=== PATIENT | female | born 1940 | race Caucasian/White ===

== ENCOUNTER 2019-03-11 14:05 | Outpatient (CLI) | payer MEDICARE | END 2019-03-11 23:59 | disposition home or self-care (01) | LOC: CVU 14:05 | PROVIDERS: ATTEND Internal Medicine Cardiovascular Disease | DX: I08.8 Other rheumatic multiple valve diseases (principal); I65.23 Occlusion and stenosis of bilateral carotid arteries; E78.5 Hyperlipidemia, unspecified | CPT/HCPCS: 0399T; 93306; 93880 ==

== ENCOUNTER 2019-05-07 11:53 | Outpatient (CLI) | payer MEDICARE ==
[~2019-05-07 11:53] MED LIST: REGADENOSON 0.4 MG/5 ML SYRINGE ONE
== END 2019-05-07 23:59 | disposition home or self-care (01) ==
LOC: CFH 11:53
PROVIDERS: ATTEND Internal Medicine Cardiovascular Disease
DX: I99.8 Other disorder of circulatory system (principal); R94.31 Abnormal electrocardiogram [ECG] [EKG]; I67.9 Cerebrovascular disease, unspecified
CPT/HCPCS: 78452; 93017; A9502; J2785

== ENCOUNTER 2019-06-11 11:44 | Observation (INO) | payer MEDICARE ==
[~2019-06-11] VITALS: Ht 157.5 cm; Wt 85.2 kg
[2019-06-11] MEDS ORDERED: ASPI81TA45 PO (12:00)
[2019-06-11] MEDS ORDERED: LIDO1ADH73 TP (12:00)
[2019-06-11] MEDS ORDERED: TRAZ50TA66 PO (12:00)
[2019-06-11] MEDS ORDERED: EMPA10TA PO (12:00)
[2019-06-11] MEDS ORDERED: FLUO20CA23 PO (12:00)
[2019-06-11] MEDS ORDERED: CYAN100014 PO (12:00)
[2019-06-11] MEDS ORDERED: ATOR40TA78 PO (12:00)
[2019-06-11] MEDS ORDERED: ASPIRIN 325 MG TABLET EC PO ONE (12:00)
[2019-06-11] MEDS ORDERED: CARV3.1212 PO (12:10)
[2019-06-11] MEDS ORDERED: IBUP-1221 PO (12:10)
[2019-06-11] MEDS ORDERED: METF850T10 PO (12:11)
[2019-06-11] MEDS ORDERED: VERAPAMIL 2.5 MG/ML, 2ML ONE (12:20)
[2019-06-11] MEDS ORDERED: LIDOCAINE-MPF 1%, 5ML ONE (12:20)
[2019-06-11] MEDS ORDERED: HEPARIN 1,000 UNITS/ML, 10ML ONE (12:20)
[2019-06-11] MEDS ORDERED: FENTANYL PF 100 MCG/2ML ONE ×2 (12:20→13:36)
[2019-06-11] MEDS ORDERED: MIDAZOLAM 1 MG/ML, 2ML ONE ×2 (12:20→13:28)
[2019-06-11] MEDS ORDERED: BIVALIRUDIN 250 MG ONE (13:45)
[2019-06-11] MEDS: SODIUM CHLORIDE 0.9% 1,000 ML IV SCH ×2 (14:21→20:55)
[2019-06-11] MEDS ORDERED: ACETAMINOPHEN 325 MG TABLET PO PRN (14:30)
[2019-06-11] MEDS ORDERED: BISACODYL 5 MG EC TABLET PO PRN (14:30)
[2019-06-11] MEDS ORDERED: CLOPIDOGREL 75 MG TABLET PO ONE (19:00)
[2019-06-11] MEDS ORDERED: ATORVASTATIN 40 MG TABLET PO SCH (21:00)
[2019-06-11] MEDS ORDERED: TRAZODONE 50MG TABLET PO SCH (21:00)
[2019-06-11] MEDS ORDERED: TICAGRELOR 90 MG TABLET PO SCH (21:00)
[2019-06-11 21:03] VITALS: BP 171/69
[2019-06-11] MEDS: CARVEDILOL 3.125 MG TABLET PO SCH (21:06)
[2019-06-11 22:46] VITALS: BP 147/76
[2019-06-12 00:31] VITALS: BP 131/70
[2019-06-12] MEDS: SODIUM CHLORIDE 0.9% 1,000 ML IV SCH (02:21)
[2019-06-12 05:07] LABS: CHLORIDE 108 mmol/L (98-107)
[2019-06-12 05:15] LABS: ANION GAP 6 mmol/L (5-15); CALCIUM 9.3 mg/dL (8.5-10.1)
[2019-06-12 08:15] VITALS: BP 107/66
[2019-06-12] MEDS ORDERED: FLUOXETINE HCL 20 MG CAPSULE PO SCH (09:00)
[2019-06-12] MEDS ORDERED: CLOPIDOGREL 75 MG TABLET PO SCH (09:00)
[2019-06-12] MEDS ORDERED: ASPIRIN 81 MG TABLET EC PO SCH ×2 (09:00)
[2019-06-12] MEDS: CARVEDILOL 3.125 MG TABLET PO SCH (09:48)
[2019-06-12] MEDS ORDERED: CLOP75TA PO (09:52)
== END 2019-06-12 11:06 | disposition home or self-care (01) ==
LOC: CACL 11:44 → ORIP 14:21 → 5SO 16:09 → DCLOUNGE 06-12 10:54
PROVIDERS: ADMIT Internal Medicine Cardiovascular Disease; ATTEND Internal Medicine Cardiovascular Disease
DX: I42.9 Cardiomyopathy, unspecified (principal); E78.5 Hyperlipidemia, unspecified; I67.9 Cerebrovascular disease, unspecified; E11.65 Type 2 diabetes mellitus with hyperglycemia; R94.31 Abnormal electrocardiogram [ECG] [EKG]; R06.02 Shortness of breath; F17.200 Nicotine dependence, unspecified, uncomplicated; Z79.899 Other long term (current) drug therapy
CPT/HCPCS: 36415; 80048; 85014; 85018; 93458; 99156; 99157; C1725; C1769; C1874; C1887; C1894; C9600; G0378; J0583; J1644; J2250; J3010; Q9967

== ENCOUNTER → 2019-07-10 | Outpatient (CLI) | payer MEDICARE ==
[~2019-07-10] MED LIST changes: +ASPI81TA45 PO; +ATOR40TA78 PO; +CARV3.1212 PO; +CLOP75TA PO; +CYAN100014 PO; +EMPA10TA PO; +FLUO20CA23 PO; +IBUP-1221 PO; +LIDO1ADH73 TP; +METF850T10 PO; +OMNIPAQUE 350 MG/ML, 100ML BOTTLE ONE; -REGADENOSON 0.4 MG/5 ML SYRINGE ONE; +TRAZ50TA66 PO
== END | disposition home or self-care (01) ==
LOC: CFH 12:50
PROVIDERS: ATTEND Registered Nurse
DX: I65.23 Occlusion and stenosis of bilateral carotid arteries (principal); I67.2 Cerebral atherosclerosis; I70.8 Atherosclerosis of other arteries
CPT/HCPCS: 70498; Q9967

== ENCOUNTER → 2020-01-08 | Outpatient (CLI) | payer MEDICARE ==
[~2020-01-08] MED LIST changes: -OMNIPAQUE 350 MG/ML, 100ML BOTTLE ONE
== END | disposition home or self-care (01) ==
LOC: STAR 14:06
PROVIDERS: ATTEND Anesthesiology
DX: Z01.812 Encounter for preprocedural laboratory examination (principal); Z20.828 Contact with and (suspected) exposure to other viral communicable diseases
CPT/HCPCS: 36415; 82962; 87635

== ENCOUNTER → 2020-02-11 | Outpatient (CLI) | payer MEDICARE | END | disposition home or self-care (01) | LOC: CVU 09:56 | PROVIDERS: ATTEND Internal Medicine Cardiovascular Disease | DX: I08.1 Rheumatic disorders of both mitral and tricuspid valves (principal); I11.9 Hypertensive heart disease without heart failure; R94.31 Abnormal electrocardiogram [ECG] [EKG]; Z95.5 Presence of coronary angioplasty implant and graft | CPT/HCPCS: 93306; 93356 ==